=== PATIENT | male | born 1995 | race Caucasian/White ===

== ENCOUNTER → 2018-02-28 14:46 | Outpatient (CLI) | payer OTHER, SELFPAY ==
--- NOTE | 2018-02-28 14:50 | RAD_ITS ---
STUDY: X-RAY - FACIAL BONES REASON FOR STUDY: Male, 23 years old. Injury and pain TECHNIQUE: Three views of the facial bones were obtained. COMPARISON: None. FINDINGS: Thel frontozygomatic and zygomatic-temporal arches appear intact. The orbital wong appear intact. The nasal bones appear intact. The maxillary spine appears intact. The visualized sinuses appear well-aerated. RAD/Facial Bones min 3 Views IMPRESSION: No acute abnormalities are seen in the facial bones. Electronically Signed: Sarina Zimmerman MD at 15:40 EDT Tel Direct: [phone], Service support ,
== END ==
LOC: HPRAD 14:48
PROVIDERS: Visit Provider Physician Assistant Surgical
DX: S00.33XA Contusion of nose, initial encounter (principal)
CPT/HCPCS: 70150

== ENCOUNTER → 2018-12-22 07:26 | Outpatient (CLI) | payer OTHER, SELFPAY ==
[2018-12-13 15:46] VITALS: BMI 22.2
--- NOTE | 2018-12-22 07:39 | MRI_ITS ---
STUDY: MRI LEFT KNEE REASON FOR EXAM: Medial pain from work injury 2.5 weeks ago. TECHNIQUE: Standardized fat and water weighted pulse sequences were obtained in all 3 orthogonal planes. COMPARISON: None. FINDINGS: Normal medial meniscus. Normal hyaline cartilage of the medial femorotibial compartment. Normal medial femoral condyle and tibial plateau. Normal medial collateral ligamentous complex (MCL). Normal distal semimembranosus, gracilis and semitendinosus tendons. Normal lateral meniscus. Normal hyaline cartilage of the lateral femorotibial compartment. Normal lateral femoral condyle and tibial plateau. Normal proximal tibiofibular articulation. Normal lateral collateral (fibular) ligament. Normal popliteus tendon. Normal biceps femoris tendon. Normal anterior cruciate ligament (ACL). Normal posterior cruciate ligament (PCL). Normal congruent patellofemoral articulation. Normal hyaline cartilage of the patellofemoral compartment. Normal medial and lateral patellar retinaculum. Normal visualized quadriceps tendon. Normal patellar tendon. Normal Hoffa's fat pad. There is a minimal volume of fluid in the knee joint. The soft tissues are unremarkable. The otherwise visualized osseous structures are unremarkable. MRI/Lower Ext Joint Only (Routine) IMPRESSION: Normal MRI of the left knee without demonstrated medial collateral ligament injury. Electronically Signed: Elmo Lauren MD at 13:19 EST Tel , Service support ,
== END ==
PROVIDERS: Referring Provider Physician Assistant Surgical; Visit Provider Physician Assistant Surgical
DX: S83.412A Sprain of medial collateral ligament of left knee, initial encounter (principal)
CPT/HCPCS: 73721

== ENCOUNTER → 2019-03-23 14:24 | Outpatient (CLI) | payer OTHER, SELFPAY ==
[2019-03-23 08:06] VITALS: BMI 22.2
== END ==
PROVIDERS: Referring Provider Physician Assistant; Visit Provider Physician Assistant
DX: J02.9 Acute pharyngitis, unspecified (principal)
CPT/HCPCS: 87081

== ENCOUNTER 2019-12-19 17:03 | Emergency (ER) | payer OTHER, SELFPAY ==
[2019-05-01 14:45] VITALS: BMI 22.2
[2019-12-19 17:04] VITALS: BP 154/98; PULSE 78; RESP 16; TEMP 37.2; O2SAT 98; BMI 23.0
--- NOTE | 2019-12-19 17:26 | CT_ITS ---
STUDY: CT BRAIN WITHOUT CONTRAST REASON FOR EXAM: Male, 24 years old. PT STATED COLLIDED WITH COWORKER HEAD TO HEAD RADIATION DOSAGE (If Supplied By Facility): CTDIvol = ( 60.81 ) mGy, DLP = ( 1044.28 ) mGycm TECHNIQUE: Transaxial CT imaging of the brain was performed without administration of intravenous contrast material. Individualized dose optimization techniques were used for this CT. COMPARISON: No relevant priors. FINDINGS: Normal soft tissue structures. Normal calvarium. Normal size ventricles and extra-axial spaces for the patient''s age. Normal white matter tracts of the cerebral hemispheres. Normal basal ganglia and thalami. Normal brainstem. Normal cerebellum. There is no intracranial hemorrhage. There are no findings of an acute ischemic infarction. There is right maxillary sinus mucus retention cyst. There is edema of the turbinates. CT/Brain/Head without Contrast IMPRESSION: Normal unenhanced CT scan of the brain. Inflammatory changes paranasal sinuses Electronically Signed: Pete Mendez, at 18:08 EST Tel , Service support ,
--- NOTE | 2019-12-19 17:28 | ED.VIS.GEN ---
History of Present Illness Chief Complaint: Head Injury Informant: Patient Onset: Today Context: Sudden Onset Timing: Continuous Current Severity: Moderate Maximum Severity: Moderate Narrative: The patient is an otherwise healthy 24-year-old male presents to the emergency department with head injury and upper back pain. The patient works at the [employer]. He states that they were playing a game outdoors. He states he jumped for a ball and landed striking the back of his head against another person's head. He states he also struck his upper back. Since then, he is had nausea and persistent headache. He is also had pain across his upper back especially when he moves. He denies any vomiting. He is not on anticoagulants. He had no loss of consciousness. There was no seizure activity. Prior similar symptoms: No Recent Illness/Hospitalization: No Past Medical History - Allergies and Home Meds Allergies/Adverse Reactions: Allergies erythromycin base Adverse Reaction (Verified 12/19/19 17:03) Nausea Primary Care Physician: ,[facility] [GROUP OF PHYSICIANS] - Prior records reviewed: Yes Past Medical History: None Surgical History: no surgical history Smoking Status: Former smoker Review of Systems General: Denies: Chills, Fever, Sweats Eyes: Denies: Visual changes - bilaterally, Diplopia ENT: Denies: Rhinorrhea, Sore throat Cardiovascular: Denies: Chest pain, Palpitations Respiratory: Denies: Dyspnea, Cough, Dyspnea on exertion Gastrointestinal: Reports: Nausea. Denies: Abdominal pain, Vomiting, Diarrhea, Melena, Hematochezia Genitourinary: Denies: Dysuria, Hematuria, Frequency Musculoskeletal: Reports: Arthralgias, Back pain. Denies: Extremity Pain Skin: Denies: Rash, Wounds Neurological: Reports: Headache. Denies: Weakness, Numbness Physical Exam Vital Signs/Narrative: Vital Signs Temp Pulse Resp BP Pulse Ox 12/19/19 17:04 98.9 F 78 16 154/98 H 98 Inital Vital Signs reviewed: Yes General: Well nourished, Well developed, No Acute Distress Head: Normocephalic, Trauma - Superficial abrasion the posterior occipital area Eyes: Perrl, EOMI ENT: Moist mucous membranes, No rhinorrhea Neck: Supple, Nontender Cardiovascular: Regular rate, Regular rhythm, No murmurs Respiratory: No distress, CTA bilaterally, Chest nontender Abdomen: Soft, Nontender, Nondistended, Normal bowel sounds Back: Normal Inspection, - - Tenderness in the upper thoracic spine on the paraspinal musculature. No step-off. Extremities: Nontender, No edema Skin: Normal color, No rash Neurological: Alert, Oriented x3, Cranial nerves II-XII grossly intact, Normal Strength, Normal Sensation Psychological: Normal affect, Normal Mood Diagnostic/Tx/Re-eval Clinical Impression(s) from Imaging Studies Brain CT 12/19/19 17:26 IMPRESSION: Normal unenhanced CT scan of the brain. Inflammatory changes paranasal sinuses Electronically Signed: Pete Mendez, at 18:08 EST Tel , Service support , Thoracic Spine X-Ray 12/19/19 17:54 IMPRESSION: Mild lower thoracic dextroscoliosis, no acute fractures Electronically Signed: Pete Mendez at 18:14 EST Tel , Service support , - Medical Decision Making With the patient's persistent headache and nausea, I did obtain noncontrast head CT. This was unremarkable for acute process. X-rays of the thoracic spine were also obtained which were negative. The patient was given Zofran and ibuprofen. He was feeling improved. At this point, I do feel that he safe for outpatient follow-up. He was counseled on concerning symptoms and reasons to return. Impression 1. Concussion without loss of consciousness 2. Thoracic contusion ED Disposition - Plan for ED Patient: Instructions: CONCUSSION, No Wake Up Prescriptions: cycloBENZAPRine HCl [Flexeril] 10 mg PO TID PRN #20 tab PRN Reason: Muscle Spasm Prescription Printed Naproxen [Naprosyn] 500 mg PO BID #14 tab Prescription Printed Referrals: [facility] [GROUP OF PHYSICIANS] -
[2019-12-19] MEDS: Ondansetron ODT 4 MG Tablet PO (17:41)
--- NOTE | 2019-12-19 17:54 | RAD_ITS ---
STUDY: X-RAY - THORACIC SPINE REASON FOR EXAM: Male, 24 years old. TRAUMA,. PATIENT COLLIDED WITH ANOTHER PERSON, HIT HEAD WITH ANOTHER PERSONS HEAD. NO LOC. PAIN IN MID THORACIC MOSTLY BETWEEN SHOULDER BLADES. TECHNIQUE: AP and lateral view(s) of the thoracic spine were obtained. COMPARISON: None. FINDINGS: There is mild lower thoracic dextroscoliosis.. Normal thoracic vertebrae and endplates. Normal disc space heights. The soft tissue structures are unremarkable. No acute fractures. RAD/Thoracic Spine 3 Views IMPRESSION: Mild lower thoracic dextroscoliosis, no acute fractures Electronically Signed: Pete Mendez, at 18:14 EST Tel , Service support ,
[2019-12-19] MEDS: Ibuprofen 600 MG Tablet PO (18:00)
[2019-12-19 19:05] VITALS: RESP 16
--- NOTE | 2019-12-19 19:06 | ED.RN ---
REVIEWED D/C INSTRUCTIONS, FOLLOW UP CARE, PRESCRIPTIONS, AND S/S THAT WOULD WARRANT A RETURN TO THE ED WITH PT. PT VERBALIZED AN UNDERSTANDING AND DENIES FURTHER QUESTIONS FOR THIS RN. PT SKIN P/W/D, RESP EVEN AND UNLABORED, PT A&O X 3, NO DISTRESS NOTED. PT AMBULATED OUT OF ED, GAIT STEADY.
--- NOTE | 2019-12-19 23:38 | ED.RN ---
Addendum entered by Ermelinda Villela 12/19/19 23:39: initial dose disposed of in sharps container. Original Note: initial dose of zofran dropped on floor, new dose obtained, scanned and administered to pt.
== END 2019-12-19 19:07 | disposition home or self-care (01) ==
LOC: ED 18:02
PROVIDERS: Emergency Provider Emergency Medicine
DX: S06.0X0A Concussion without loss of consciousness, initial encounter (principal); S20.229A Contusion of unspecified back wall of thorax, initial encounter; W51.XXXA Accidental striking against or bumped into by another person, initial encounter; Y93.89 Activity, other specified; Y92.198 Other place in other specified residential institution as the place of occurrence of the external cause; Y99.0 Civilian activity done for income or pay; Z87.891 Personal history of nicotine dependence
CPT/HCPCS: 70450; 72072; 96372; 99283

== ENCOUNTER 2021-04-29 20:07 | Emergency (ER) | payer OTHER, SELFPAY ==
[2020-08-12 17:17] VITALS: BMI 23.0
[2021-04-29 20:08] VITALS: BP 146/94; PULSE 110; RESP 18; TEMP 36.6; O2SAT 97; BMI 24.9
--- NOTE | 2021-04-29 20:32 | RAD_ITS ---
INDICATION: trauma EXAMINATION/TECHNIQUE: X-RAY - LEFT XR Ankle Min 3 Views COMPARISON: None. FINDINGS: No acute fracture or malalignment. No blastic or lytic lesions. No degenerative changes are seen. Soft tissue swelling of the medial ankle. RAD/Ankle min 3 Views IMPRESSION: Soft tissue swelling of the medial ankle without fracture. Electronically Signed: Vinicio Roberts MD at 21:00 EDT Tel , Service support ,
--- NOTE | 2021-04-29 21:02 | ED.VIS.LOWEX ---
HPI History of Present Illness HPI Narrative: 26-year-old male presents with left ankle pain. States he took a softball line drive to the inner left ankle. Sharp pain. Worse with movement. Denies any numbness or tingling. Chief Complaint: Lower Extremity Injury [facility] Medical History (Updated 04/29/21 @ 21:[address] Mickey Cohen DO) Back pain History of sprained ankle Knee pain Home Medications prednisone 20 mg tablet 20 mg PO DAILY #18 tab 04/25/20 [Rx Last Taken Unknown] naproxen 500 mg PO BID #14 tab 04/29/21 [Rx Last Taken Unknown] Allergy/AdvReac Type Severity Reaction Status Date / Time erythromycin base AdvReac Nausea Verified 04/29/21 20:10 Family History Other Cancer Heart disease Surgical History Venous malformation Social History Smoking Status: Former smoker alcohol intake: current alcohol intake frequency: a few times a week Alcohol type: beer ROS ROS ED Constitutional Constitutional ED: Denies chills, fever(s) or sweats Eyes Eyes: Denies blurry vision, change in vision or diplopia ENT ENT ED: Denies rhinorrhea or sore throat Cardiovascular Cardiovascular: Denies chest pain, orthopnea, palpitations or racing heartbeat Respiratory/Chest Respiratory/Chest: Denies cough, dyspnea, dyspnea on exertion, orthopnea or sputum Gastrointestinal Gastrointestinal: Denies abdominal pain, constipation, diarrhea, melena, nausea or vomiting Genitourinary Genitourinary ED: Denies dysuria, hematuria or urinary frequency Musculoskeletal Musculoskeletal: Reports arthralgias; Denies myalgias or neck pain Integumentary Denies rash Neurologic Neurologic: Denies headache(s), paresthesias or weakness Psychiatric Psychiatric: Denies anxiety or depression Hematologic/Lymphatic Hematologic/Lymphatic: Denies easy bleeding or easy bruising Allergic/Immunologic Allergic/Immunologic ED: Denies mouth swelling or tongue swelling EXAM Physical Exam Const Vital Signs: 04/29/21 20:08 Temperature 98 F Temperature Source Temporal Pulse Rate 110 H Respiratory Rate 18 Blood Pressure 146/94 H Blood Pressure Mean 111 Pulse Ox 97 Oxygen Delivery Method Room Air Positive well nourished and well developed General Appearance ED: well developed HEENT Reports TM's clear normocephalic and atraumatic Tympanic Membrane ED: Yes TM's clear Eyes EOMs intact bilaterally Neck no lymphadenopathy, supple and no JVD Resp normal respiratory effort Cardio Peripheral Pulses: pulses 2+ throughout GI soft to palpation Back/Spine no thoracic nor lumbar tenderness Extremity Extremity Narrative: Tenderness to palpation of the medial left ankle. Ecchymosis and edema. Strong palpable pulses. Sensation intact. General Extremety ED: Negative for tenderness Neuro Sensorium / Orientation: alert Psych mental status grossly normal Skin no rashes or lesions noted MDM MDM MDM Narrative Medical decision making narrative: Patient appears well nontoxic. Vital signs show tachycardia which is likely secondary to his pain. X-ray done which shows no acute fracture. Patient be placed in Ilan wrap. Given intramuscular Toradol. Given Naprosyn for home. Advised on rest, ice, compression, elevation. Asked to return for new or worsening symptoms. Patient agreeable and discharged home in stable condition. Radiography Diagnostic Testing: Radiology Impression Ankle X-Ray 04/29/21 20:32 IMPRESSION: Soft tissue swelling of the medial ankle without fracture. Electronically Signed: Vinicio Roberts MD at 21:00 EDT Tel , Service support , Discharge Plan Triage Chief Complaint: Lower Extremity Injury ED Provider: Mickey Cohen Dx/Rx/DC Orders Clinical Impression: Ankle contusion Instructions: ED Contusion, Lower Extremity Prescriptions: New naproxen 500 mg tablet 500 mg PO BID Qty: 14 RF: 0 No Action prednisone 20 mg tablet 20 mg PO DAILY Qty: 18 RF: 0 Primary Care Provider: Care Physician,No Primary Referrals: Care Physician,No Primary [Primary Care Provider] - Disposition Disposition: Home, Self Care
== END 2021-04-29 21:34 | disposition home or self-care (01) ==
PROVIDERS: Emergency Provider Emergency Medicine
DX: S90.02XA Contusion of left ankle, initial encounter (principal); X58.XXXA Exposure to other specified factors, initial encounter; Z87.891 Personal history of nicotine dependence
CPT/HCPCS: 73610; 99282

== ENCOUNTER 2023-03-26 08:01 | Outpatient (RCR) | payer BC, SELFPAY ==
--- NOTE | 2023-03-26 09:00 | HP.PTEVAL ---
Patient's Visit Information LIZZ FARRIS is a 28 year old M referred to Physical Therapy by BILL Quinn with a diagnosis of Strain L lower leg. Date of Evaluation: 03/26/23 Physical Therapist: Henrry Stevenson DPT, OCS, CSCS - Visit Plan Frequency: 1x/Week Duration: 2-3 visits total Plan: Pts main deficits are tightness in ITB, HS and quad and quad and HS weakness L LE. Pt sharp pain is gone and achyness back to baseline and he does not wish to have regular therapy unless the sharp pain returns. He will stretch at home(given quad, ITB and HS today) and feels like he can do leg strength on his own without our input. Plan is to f/u 1 or two visits over the next 4-6 weeks to ensure that stretching and strengthening are going well and sharp pain stays abated. PT to call prior if pain worsens. Next session ensure stretching and check on progress with home strength(may need quad and HS instruction if not doing well.) - Subjective Had a couple months of posterior L knee pain sharp and without warning and without trigger. Last Wednesday it became more frequent happening 20+ times. [facility] and x rays were fine. Sent to ortho and thinks patella tendonitis and possible cyst at HS. No other treatments. pain in back of knee is gone. has had knee aches B since playing baseball in college and deals with this much of the time. back to baseline. Sleep is OK. No activities effected. Works at [employer] in physical job out and running around the with the kids., Knees hurt to do this at times. Sometimes worse after restraints. Hobbies include 2 yo. playing and avoids going to floor due to knee soreness. - Pain L knee Pain Intensity (Out of 10): 2 Pain Intensity Range: 0, 8 Comment: 5 seconds worth - Objective Walking normal with just his normal achiness today. No deviations. Trasnfers I bed and chair. Steps reciprocal and skipping a step without increased pain. marches, heel and toe walking without a problem, butt kicks hurt slightly L knee. Full A/PROM B knees and hips but tightness obvious in B quads, L ITB and B HS with a -40 90/90. Weakness apparent in L quad and HS at 4- and R 4+, hips abd, ext 4, flexion 4+. ankle strength 4+ B. reflexes 2/3 patella and achilles. Sensation LE WNL to gross light touch. - ant drawer, - post sag, - bounce home, - disco, - pivot shift, - varus and valgus today. Tender mod in quad ligament and min in medial and lateral patella L whcih moves well. - Balance/Special Test Scores Lower Extremity Functional Score: 67 - Goals Goal 1:: Pt feel back to normal for a period of two weeks with just achiness and no sharp pain Goal Time Frame: 4-6 Weeks Goal 2:: I appropriate home stretches and compliant Goal Time Frame: 4-6 Weeks Goal 3:: Patient able to get on floor and play with child without increased knee pain Goal Time Frame: 4-6 Weeks - Rehabilitation Potential Physical Therapy Diagnosis: L knee pain unknown etiology and improved to achyness. Rehabilitation Potential: Good - Anticipated Interventions Patient/Client Instruction: Educate patient on: Condition, Plan of Care For the Purpose of:: To decrease pain, To improve nutrient delivery to tissue, To improve muscle performance and motor function, To increase tolerance to activity/condition/position, To improve ability of physical actions for home/community/work/leisure, To improve gait and locomotor functions Therapeutic Exercise to Include: Strength training, Flexibilty training For the Purpose of:: To decrease pain, To improve nutrient delivery to tissue, To improve muscle performance and motor function, To improve ability to perform ADL's, To increase tolerance to activity/condition/position Thank you for the opportunity to evaluate your patient. For Medicare and Medicare HMO plans, please review the plan of care and approve it. It will need to be FAXED BACK to us at [phone] for Medicare purposes. For Medicare only, by signing this I certify the plan of care. Please let me know if there are questions or concerns regarding this plan of care. Physician Signature: Date:
--- NOTE | 2023-04-29 11:51 | HP.PT.NRP ---
LIZZ FARRIS was seen in my office for initial evaluation on 03/26/23. The following Plan of Care was established for this patient: Initial Frequency: 1x/Week Initial Duration: 2-3 visits total Patient/Client Instruction: Educate patient on: Condition, Plan of Care For the Purpose of:: To decrease pain, To improve nutrient delivery to tissue, To improve muscle performance and motor function, To increase tolerance to activity/condition/position, To improve ability of physical actions for home/community/work/leisure, To improve gait and locomotor functions Therapeutic Exercise to Include: Strength training, Flexibilty training For the Purpose of:: To decrease pain, To improve nutrient delivery to tissue, To improve muscle performance and motor function, To improve ability to perform ADL's, To increase tolerance to activity/condition/position This patient was last seen in our office 03/26/23. Pertinent comments regarding their Physical therapy will appear below: Pt seen one visit of POC and was to f/u three weeks later but called to cancel stating he was doing really well. i will discontinue at his request at this point. At this point I will be discontinuing this patient from physical therapy. I would be happy to see this patient again in the future if found appropriate by the physician. Thank you! Henrry Stevenson, DPT, OCS, CSCS Balance/Gait/Functional tests - Balance/Special Test Scores Lower Extremity Functional Score: 67
== END 2023-03-26 19:00 | disposition home or self-care (01) ==
LOC: PT 08:01
PROVIDERS: Referring Provider Physician Assistant; Visit Provider Physician Assistant
DX: S86.912D Strain of unspecified muscle(s) and tendon(s) at lower leg level, left leg, subsequent encounter (principal)
CPT/HCPCS: 97110; 97161

== ENCOUNTER → 2023-04-22 | Outpatient (CLI) | payer BC, SELFPAY ==
--- NOTE | 2023-04-22 11:17 | US_ITS ---
EXAM: US LEFT LOWER EXTREMITY NON-VASCULAR, COMPLETE CLINICAL INDICATION: lump -- US lump left posterior upper thigh TECHNIQUE: Real-time ultrasound scan of the left lower extremity with image documentation. COMPARISON: No relevant prior studies available. FINDINGS: SOFT TISSUES: Hypoechoic lesion measuring 1.3 x 2.3 x 0.6 cm in the subcutaneous fat posterior left thigh in the area of interest. It has similar characteristics as adjacent subcutaneous fat. No abscess. No foreign body. US/Ext Non Vasc Limited/Soft Tiss IMPRESSION: Hypoechoic lesion measuring 1.3 x 2.3 x 0.6 cm in the subcutaneous fat in the area of interest that has similar characteristics as the adjacent subcutaneous fat. It may represent a lipoma. Electronically Signed: Shaan Metcalf MD at 4:25 EDT ,
== END | disposition home or self-care (01) ==
LOC: US 11:17
DX: R22.42 Localized swelling, mass and lump, left lower limb (principal)
CPT/HCPCS: 76882

== ENCOUNTER → 2023-09-20 | Outpatient (CLI) | payer OTHER, BC, SELFPAY ==
--- NOTE | 2023-09-20 14:30 | RAD_ITS ---
STUDY: X-RAY - RIGHT KNEE REASON FOR EXAM: Male, 28 years old. Pain following a twisting injury. TECHNIQUE: 4 view(s) of the knee. COMPARISON: Comparison is made with prior study dated June 01, 2023. FINDINGS: Normal visualized distal femur. Normal visualized proximal tibia and fibula. Normal proximal tibiofibular articulation. Normal medial femorotibial compartment. Normal lateral femorotibial compartment. Normal patellofemoral articulation. Small joint effusion. RAD/Knee 4 or More Views IMPRESSION: Small joint effusion. Electronically Signed: Joshua Camacho MD at 15:15 EST ,
== END | disposition home or self-care (01) ==
PROVIDERS: Referring Provider Physician Assistant; Visit Provider Physician Assistant
DX: S89.91XA Unspecified injury of right lower leg, initial encounter (principal)
CPT/HCPCS: 73564

== ENCOUNTER → 2023-10-23 | Outpatient (CLI) | payer OTHER, BC, SELFPAY ==
--- NOTE | 2023-10-23 06:59 | MRI_ITS ---
STUDY: MRI RIGHT KNEE REASON FOR EXAM: Male, 28 years old. Knee injury one month ago. Anterior pain, history of patellar tendinosis. TECHNIQUE: Standardized fat and water weighted pulse sequences were obtained in all 3 orthogonal planes. COMPARISON: Right knee radiographs dated 09/20/2023. FINDINGS: There is a suspected horizontal tear of the posterior horn of the medial meniscus (sagittal PD series 4 image 33). There is mild reactive subchondral marrow edema in the medial femoral condyle and medial tibial plateau. Normal hyaline cartilage of the medial femorotibial compartment. Normal medial collateral ligamentous complex (MCL). Normal distal semimembranosus, gracilis and semitendinosus tendons. Normal lateral meniscus. Normal hyaline cartilage of the lateral femorotibial compartment. Normal lateral femoral condyle and tibial plateau. Normal proximal tibiofibular articulation. Normal lateral collateral (fibular) ligament. Normal popliteus tendon. Normal biceps femoris tendon. Normal anterior cruciate ligament (ACL). Normal posterior cruciate ligament (PCL). Normal congruent patellofemoral articulation. Normal hyaline cartilage of the patellofemoral compartment. Normal medial and lateral patellar retinaculum. Normal quadriceps tendon. Normal patellar tendon. Normal Hoffa''s fat pad. There is a tiny joint effusion. There is no popliteal cyst. The soft tissues are unremarkable. MRI/Lower Ext Joint Only (Routine) IMPRESSION: Suspected horizontal tear of the posterior horn of the medial meniscus, with mild reactive subchondral marrow edema in the medial femoral condyle and medial tibial plateau. Tiny joint effusion. Electronically Signed: Oneil Buchanan MD at 8:37 EST ,
== END | disposition home or self-care (01) ==
LOC: MRI 06:55
PROVIDERS: Referring Provider Physician Assistant; Visit Provider Physician Assistant
DX: S89.91XA Unspecified injury of right lower leg, initial encounter (principal); S86.911A Strain of unspecified muscle(s) and tendon(s) at lower leg level, right leg, initial encounter
CPT/HCPCS: 73721

== ENCOUNTER 2024-02-28 18:18 | Emergency (ER) | payer OTHER, BC, SELFPAY ==
[2024-02-28 18:19] VITALS: BP 146/73; PULSE 102; RESP 18; TEMP 36.1; O2SAT 99; BMI 25.0
--- NOTE | 2024-02-28 18:40 | EDS_ITS ---
HPI History of Present Illness Chief Complaint: Other, Pain/Inj Detail of Chief Complaint: Neck and shoulder pain Informant: patient Narrative Narrative: Patient presents in her neck and shoulder pain. He works at [employer] Yesterday they had a resident who had 2 staff members by the [facility] and it backed up against a door. In order to enter the room to help his coworkers, he used his shoulder against the door to push his way in. He has some slight tightness in his right neck and shoulder last evening and worse this morning upon waking. He took ibuprofen around 3 PM this afternoon. He had another incident at work this afternoon where resident dropped her weight forward causing him to fall injuring his right shoulder again. He now has increased pain when he looks to the left or tries to flex his neck. He had some paresthesias in his right upper extremity earlier that are now resolved. He is right-hand dominant. [facility] Medical History Back pain History of sprained ankle Knee pain Right knee injury Strain of left knee Strain of right knee Tear of medial meniscus of right knee Home Medications lidocaine 5 % topical patch (Lidoderm) 1 patch topical DAILY #15 ea 02/28/24 [Rx Last Taken Unknown] naproxen 500 mg tablet (Naprosyn) 500 mg PO BID PRN pain #20 tabs 02/28/24 [Rx Last Taken Unknown] Allergy/AdvReac Type Severity Reaction Status Date / Time erythromycin base AdvReac Nausea Verified 02/28/24 18:18 Family History Other Cancer Heart disease Surgical History Venous malformation Social History Smoking Status: Former smoker alcohol intake: current alcohol intake frequency: a few times a week Alcohol type: beer ROS ROS ED Constitutional Constitutional ED: Denies chills or fever(s) Eyes Eyes: Denies discharge from eye(s) ENT ENT ED: Denies discharge from eye(s), rhinorrhea or sore throat Cardiovascular Cardiovascular: Denies chest pain Respiratory/Chest Respiratory/Chest: Denies cough or dyspnea Gastrointestinal Gastrointestinal: Denies abdominal pain, nausea or vomiting Musculoskeletal Musculoskeletal: Reports back pain, extremity pain and neck pain Integumentary Denies Abrasions or rash Neurologic Neurologic: Denies headache(s) or weakness Psychiatric Psychiatric: Denies anxiety or depression Allergic/Immunologic Allergic/Immunologic ED: Denies lip swelling or urticaria EXAM Physical Exam Const Vital Signs: 02/28/24 18:19 02/28/24 18:46 Temperature 96.9 F L Temperature Source Temporal Pulse Rate 102 H Respiratory Rate 18 Respiratory Pattern Normal Blood Pressure 146/73 H Blood Pressure Mean 97 Pulse Ox 99 Oxygen Delivery Method Room Air Positive well nourished and well developed General Appearance ED: well developed HEENT atraumatic Eyes EOMs intact bilaterally Chest Wall inspection of chest normal and palpation of chest normal Resp normal respiratory effort and clear to auscultation bilaterally Cardio regular rhythm Rate: regular rate Back/Spine Back/Spine Narrative: Tenderness of the lower cervical vertebrae midline. Tenderness in the right trapezius muscles. Patient able to raise shoulder to 90 degrees but difficulty raising higher than this. Strong distal pulses with normal sensation. Strong hand grasp on the right. Extremity normal to inspection Neuro oriented x3 Skin no rashes or lesions noted MDM MDM MDM Narrative Medical decision making narrative: Patient sent for x-ray imaging of the C-spine as well as chest to evaluate for any acute bony injury. Radiography Diagnostic Testing: Clinical Impression(s) from Imaging Studies Cervical Spine X-Ray 02/28/24 18:45 IMPRESSION: No evidence of acute fracture or spondylolisthesis. Electronically Signed: Dalton Zamarripa MD at 19:25 EDT , Chest X-Ray 02/28/24 18:45 IMPRESSION: No radiographic evidence of acute cardiopulmonary disease. Electronically Signed: Dalton Zamarripa MD at 19:25 EDT , Treatment and Re-Evaluation Narrative: C-spine x-rays and chest x-ray reviewed by myself reveal no obvious acute abnormalities. Radiology interpretation reviewed and agrees. Test results discussed with patient. I will write him a prescription for naproxen along with Lidoderm patches. He will be given work restrictions and will follow-up with corporate care. Discharge Plan Triage Chief Complaint: Other, Pain/Inj ED Provider: Sarina Dodd Dx/Rx/DC Orders Clinical Impression: Cervical strain, acute Instructions: ED Neck Sprain or Strain Prescriptions: New naproxen [Naprosyn] 500 mg tablet 500 mg PO BID PRN (Reason: pain) Qty: 20 0RF lidocaine [Lidoderm] 5 % adhesive patch,medicated 1 patch topical DAILY Qty: 15 0RF Rx Instructions: leave on most painful area for up to 12 hrs Stand Alone Forms: Work Status Form Primary Care Provider: Care Physician,No Primary Referrals: Care Physician,No Primary [Primary Care Provider] - Disposition Disposition: Home, Self Care
--- NOTE | 2024-02-28 18:45 | RAD_ITS ---
EXAM: XR CHEST, 2 VIEWS CLINICAL INDICATION: injury TECHNIQUE: Frontal and lateral views of the chest. COMPARISON: No relevant prior studies available. FINDINGS: LUNGS AND PLEURAL SPACES: Unremarkable. No consolidation or edema. No pneumothorax. No effusion. HEART: Unremarkable. Cardiac silhouette not enlarged. MEDIASTINUM: Central airways and mediastinal contour are unremarkable. BONES/JOINTS: Unremarkable. No acute fracture. SOFT TISSUES: Unremarkable. RAD/Chest PA and Lateral IMPRESSION: No radiographic evidence of acute cardiopulmonary disease. Electronically Signed: Dalton Zamarripa MD at 19:25 EDT ,
--- NOTE | 2024-02-28 18:45 | RAD_ITS ---
EXAM: XR CERVICAL SPINE, 2 OR 3 VIEWS CLINICAL INDICATION: injury TECHNIQUE: Frontal and lateral views of the cervical spine. COMPARISON: No relevant prior studies available. FINDINGS: VERTEBRAE: Unremarkable. Preserved vertebral body height. No acute fracture. No spondylolisthesis. Preservation of the normal cervical lordosis. No significant facet arthropathy. DISC SPACES: Unremarkable. Disc spaces are maintained. SOFT TISSUES: Unremarkable. No prevertebral soft tissue widening. LUNG APICES: Clear. RAD/Cerv Spine 2 or 3 Views IMPRESSION: No evidence of acute fracture or spondylolisthesis. Electronically Signed: Dalton Zamarripa MD at 19:25 EDT ,
[2024-02-28] MEDS: Lidocaine 5% Patch 1 PATCH TOPICAL (20:24)
[2024-02-28 20:28] VITALS: BP 132/92; PULSE 68; RESP 19; TEMP 36.4; O2SAT 97
== END 2024-02-28 20:29 | disposition home or self-care (01) ==
PROVIDERS: Emergency Provider Emergency Medicine; Visit Provider Emergency Medicine
DX: S16.1XXA Strain of muscle, fascia and tendon at neck level, initial encounter (principal); X58.XXXA Exposure to other specified factors, initial encounter; Y93.89 Activity, other specified; Y92.89 Other specified places as the place of occurrence of the external cause; Y99.0 Civilian activity done for income or pay; Z87.891 Personal history of nicotine dependence
CPT/HCPCS: 71046; 72040; 99283

== ENCOUNTER → 2025-02-14 | Outpatient (CLI) | payer OTHER, SELFPAY ==
--- NOTE | 2025-02-14 11:28 | RAD_ITS ---
PROCEDURE: KNEE 4 OR MORE VIEWS 02/14/2025 REASON FOR EXAM: PAIN TECHNIQUE: 4 view(s) of the right knee COMPARISON: No relevant prior. FINDINGS: Bones: No acute osseous abnormalities Joints: No dislocations or subluxations. Effusion: Unremarkable. Soft tissues: No swelling or foreign bodies. Other: No other significant findings. RAD/Knee 4 or More Views IMPRESSION: Negative right knee. Reading Location: [place] [id number]
== END | disposition home or self-care (01) ==
PROVIDERS: Referring Provider Physician Assistant; Visit Provider Physician Assistant
DX: M25.561 Pain in right knee (principal)
CPT/HCPCS: 73564